=== PATIENT | male | born 1975 | race African-American/Black ===

== ENCOUNTER 2017-09-17 18:19 | Emergency (ER) | payer BC, OTHER ==
--- NOTE | 2017-09-17 20:06 | CT ---
HEAD CT WITHOUT CONTRAST: Date: 09-17-17 Comparison: None. History: Head injury, fall. Technique: Serial axial CT imaging at 5 mm intervals from the vertex through the skull base without c ontrast. FINDINGS: The imaged paranasal sinuses and mastoid air cells are well aerated. There is no displaced calvarial fracture. There is no intracranial hemorrhage, midline shift, mass effect, or ventricular enlargement. IMPRESSION: No intracranial hemorrhage or displaced calvarial fracture. POS: [facility]
--- NOTE | 2017-09-17 20:19 | CT ---
CT OF CERVICAL SPINE WITHOUT CONTRAST: Date: 09-17-17 Comparison: None. History: Injury. Neck pain. Technique: Serial axial CT imaging at 2.5 mm intervals from skull base to lung apices without contras t. FINDINGS: Imaged lung apices are unremarkable. There is marked enlargement of the thyroid gland with numerous thyroid nodules, incompletely imaged o n this exam. The thyroid gland measures at least 7.8 cm in transverse dimension, 5.9 cm in AP dimensi on, and at least 7.5 cm in craniocaudal dimension. The C1 ring is intact. There is moderate degenerative changes at the atlantoaxial interspace. The crate liner niocervical junction and cervicothoracic junction demonstrate no acute findings. Old fractures are seen at the tip of the C6, C7, and T1 spinus processes. There is no anterolisthesis or retrolisthesis noted. No prevertebral soft tissue swelling. No acute fracture. There is facet and uncal vertebral osteophyte formation on the left at C4-5 with osteophyte encroachment on the left ne ural foramen. At C5-6 there is facet and uncal vertebral osteophyte formation, left greater than righ t, with bilateral neural foraminal osteophyte encroachment, left greater than right. IMPRESSION: 1. Degenerative change with no displaced fracture or evidence of dislocation. 2. Enlarged heterogeneous thyroid gland with numerous thyroid nodules. Follow up thyroid ultrasound o n a nonemergent basis, as well as correlation with thyroid function test advised. Code T POS: [facility]
== END 2017-09-17 19:50 | disposition home or self-care (01) ==
LOC: ERS 18:19
DX: S13.4XXA Sprain of ligaments of cervical spine, initial encounter (principal); S00.01XA Abrasion of scalp, initial encounter; W11.XXXA Fall on and from ladder, initial encounter
CPT/HCPCS: 70450; 72125

== ENCOUNTER 2017-09-25 13:42 | Outpatient (CLI) | payer BC ==
--- NOTE | 2017-09-25 17:15 | ULT ---
ULTRASOUND THYROID STANDARD: Date: 09/25/17 HISTORY: E04.1, thyroid nodule. COMPARISON: Cervical spine CT dated 09/17/17. FINDINGS: Right lobe of the thyroid measures 8.9 x 3.0 x 3.4 cm. Left lobe measures 9.3 x 3.6 x 3.8 cm. Isthmus measures 2.0 cm in AP dimension. Numerous bilateral nodules. Left lobe of the thyroid is 1.5 x 1.2 x 1.1 cm, mixed solid and cystic hypoechoic mass, which is wider than tall, severely marginated withou t echogenic foci. This is a TIRADS 2: Not suspicious. There are other smaller nodules within the lef t lobe of the thyroid. Within the right lobe of the thyroid, is a 1.4 x 1.0 x 1.1 cm mixed solid and cystic nodule, isoechoic mass, measures wider than tall, without associated calcifications. In the right lobe of the thyroid is a 1.4 x 0.7 x 1.1 cm solid nodule, hypoechoic, wider than tall, w ith smooth margins, without echogenic foci. This is TIRADS 4: Moderately suspicious. Given the size, follow-up is recommended. IMPRESSION: 1. Markedly enlarged thyroid with background hypervascularity suggesting thyroiditis. 2. Numerous bilateral thyroid nodules with the nodule within the right lobe which is solid, hypoecho ic, wider than tall, with smooth margins, without echogenic foci, measuring 1.4 x 0.8 x 1.1 cm, meeti ng criteria for follow-up. Follow-up ultrasound in 6 months recommended. POS: [facility]
== END 2017-09-25 13:43 | disposition home or self-care (01) ==
LOC: ULT 13:42
PROVIDERS: ATTEND Physician Assistant
DX: E04.1 Nontoxic single thyroid nodule (principal); E04.2 Nontoxic multinodular goiter; R93.8 Abnormal findings on diagnostic imaging of other specified body structures
CPT/HCPCS: 76536

== ENCOUNTER 2018-04-02 09:10 | Outpatient (CLI) | payer BC ==
--- NOTE | 2018-04-02 10:36 | ULT ---
THYROID ULTRASOUND: History: Follow up of thyroid nodules with a TIRADS 4 nodule noted in the right lobe on previous exam . Comparison: 09-25-17 FINDINGS: Real-time imaging of the right and left lobes of the gland were performed. The right lobe measures 2. 9 x 3.7 x 8.8 cm. The left lobe 2.4 x 4.9 x 9.7 cm. Numerous bilateral thyroid nodules are identified . On the right side there are several complex cystic nodules. The hypoechoic solid nodule on the righ t side which was classified as a TIRADS 4 on the previous examination is difficult to visualize but i s seen and appears stable in size with measurements of 7 x 14 mm, which are similar to the previous e xam. On the left side small nodules also appear stable. Within the isthmus region there is a larger 2.7 x 3.7 cm nodule. It is not as well seen on the prior examination but on some of the transverse images I see what I believe to be the same nodule and believe it to be relatively similar in size although be tter visualized on this exam. It is difficult to distinguish some nodules due to overall heterogeneit y of the gland. IMPRESSION: Enlarged heterogeneous gland with multiple nodules. Overall the findings are felt to be similar to th e prior examination. There is one large nodule in the isthmus which was not described on the previous study but in reviewing the images I believe it was present, just not as well seen due to its positio n and overall heterogeneity of the gland. The right lobe thyroid nodule which was classified as a TIR ADS 4 is stable. POS: [facility]
== END 2018-04-02 09:11 | disposition home or self-care (01) ==
LOC: BICULT 09:10
PROVIDERS: ATTEND Otolaryngology Plastic Surgery within the Head & Neck
DX: E04.2 Nontoxic multinodular goiter (principal)
CPT/HCPCS: 76536